=== PATIENT | male | born 1955 | race Caucasian/White ===

== ENCOUNTER 2023-01-15 05:40 | Outpatient (CLI) | payer MEDICARE ==
[~2023-01-15] VITALS: Ht 182.9 cm; Wt 102.1 kg
[~2023-01-15 05:40] MED LIST: LATA2.5D5 OP; [UNRECOGNIZED DRUG - OTHER] OU
[2023-01-15] MEDS ORDERED: BENA-3 PO (14:42)
[2023-01-15] MEDS ORDERED: ALFU10TA12 PO (14:42)
[2023-01-15] MEDS ORDERED: ATOR40TA70 PO (14:42)
[2023-01-15] MEDS ORDERED: LACTATED RINGERS 1,000 ML 1,000 ML IV STA (14:43)
== END 2023-01-15 14:46 ==
LOC: PREOP 05:40
PROVIDERS: ATTEND Internal Medicine
DX: Z01.818 Encounter for other preprocedural examination (principal)

== ENCOUNTER 2023-01-24 07:55 | Day surgery (SDC) | payer MEDICARE, OTHER ==
--- NOTE | 2023-01-14 09:00 | HISTORY AND PHYSICAL ---
COLONOSCOPY HISTORY AND PHYSICAL HISTORY OF PRESENT ILLNESS: The patient is a 67-year-old white male being set up for his first screening colonoscopy. He is not aware of any family history for colon cancer. Denies bright red blood per rectum, melena or change in bowel habit. He does report over the last year, he has had progressive diminishment in urinary stream with dribbling and he is now getting up 3 times at night to go to the bathroom. Interestingly, his PSA has been low. He has had no history of instrumentation or radiation therapy. He has noted no hematuria or dysuria. He will occasionally have lightheadedness when he gets up and his blood pressure was a little low at 100/60 when he first walked in. He has been feeling well otherwise, normal appetite and stable weight. PHYSICAL EXAMINATION: GENERAL: Reveals a white male, appears to be in no acute distress, 6 feet 1-3/4. VITAL SIGNS: Weight 225.8 pounds, blood pressure 100/60. CHEST: Clear. CARDIOVASCULAR: Reveals regular rate and rhythm without murmur, S3, or S4. ABDOMEN: Soft, supple without mass, organomegaly, or tenderness. EXTREMITIES: No cyanosis, clubbing or edema. ASSESSMENT AND PLAN: 1. The patient is being set up for screening colonoscopy. Prep instructions were given and questions were answered. 2. Symptoms compatible with prostatism. We will initiate alfuzosin 10 mg at the evening meal. Expectations were discussed as well as potential side effects. 3. Hypertension with stage III chronic renal disease. GFR was stable with blood test for review at 49 with a creatinine of 1.5, CO2 22, with a chloride of 109 and a sodium of 140 compatible with stage III chronic renal disease as his blood pressure is a little bit low. We will discontinue the hydrochlorothiazide. Continue 20 mg of benazepril daily. I will see him back in 2 months for repeat renal function and he will require a flu shot and blood pressure check. Job ID: [id number] DocumentID: [id number] Dictated Date: 01/13/2023 11:19:42 Credit Risk Modeler Date: 01/13/2023 11:54:00 Dictated By: JILL OLIVER MD
[~2023-01-24] VITALS: Ht 183 cm; Wt 102.1 kg
[~2023-01-24 07:55] MED LIST changes: +ALFU10TA12 PO; +ATOR40TA70 PO; +BENA-3 PO
[2023-01-24] MEDS ORDERED: LACTATED RINGERS 1,000 ML 1,000 ML IV STA (08:09)
[2023-01-24 08:15] VITALS: BP 130/76
--- NOTE | 2023-01-24 08:36 | Pre-Op Note & Conscious Sedat ---
Pre-Operative Progress Note Date H&P Reviewed: Jan 24, 2023 Time H&P Reviewed: 08:35 History & Physical: H&P Reviewed, Patient Examed, No changes noted Pre-Op Diagnosis: screening Moderate Sedation PreProcedure ASA Score 2 Airway Lungs Heart ASA score ASA 1: a normal healthy patient ASA 2: a patient with a mild systemic disease (mid diabetes, controlled hypertension, obesity ASA 3: a patient with a severe systemic disease that limits activity (angina, COPD, prior Myocardial infarction) ASA 4: a patient with an incapacitating disease that is a constant threat to life (CHF, renal failure) ASA 5: a moribund patient not expected to survive 24 hrs. (ruptured aneurysm) ASA 6: a declared brain- patient whose organs are being harvested. For emergent operations, add the letter E after the classification Mallampati Classification Grade 1 Sedation Plan Analgesia, Amnesia, Plan communicated to team members, Discussed options with patient/fam, Discussed risks with patient/fam The patient is an appropriate candidate to undergo the planned procedure, sedation, and anesthesia. The patient immediately re-assessed prior to indication. JILL OLIVER MD Jan 24, 2023 08:36
--- NOTE | 2023-01-24 09:27 | Anesthesia-General Post-Op ---
MAC Patient Condition Mental Status/LOC: Same as Preop Cardiovascular: Satisfactory Nausea/Vomiting: Absent Respiratory: Satisfactory Pain: Controlled Complications: Absent Post Op Complications Complications None Follow Up Care/Instructions Patient Instructions None needed. Anesthesiology Discharge Order Discharge Order Patient is doing well, no complaints, stable vital signs, no apparent adverse anesthesia problems. No complications reported per nursing. JOAN KUMAR CRNA Jan 24, 2023 09:27
[2023-01-24 09:30] VITALS: BP 90/59
--- NOTE | 2023-01-24 09:31 | Progress Note-Post Operative ---
Post-Procedure Note Physician (s)/Shipping Clerk (s) Physician JILL OLIVER MD Pre-Procedure Diagnosis Pre-Procedure Diagnosis: screening Post-Procedure Diagnosis Post-operative diagnosis: Prior to undergoing colonoscopy digital rectal evaluation was performed. Anal sphincter tone was normal and the perianal reflexes intact. The prostate is mildly enlarged and a nodular on digital inspection. No other abnormalities were noted on digital inspection anal canal or distal rectal vault. The colonoscope was then inserted into the rectum and under direct visualization advanced to the cecum. The cecum was identified by identification of the appendiceal orifice and ileocecal valve. Photographic documentation was obtained. A careful inspection was made as the colonoscope was withdrawn. Quality the prep was good. FindingsIn total 7 polyps were removed all under 5 mm in size and unremarkable in appearance. Locations include the distal rectum and distal sigmoid proximal descending splenic flexure 2 in the distal transverse colon and one in the mid transverse colon. Patient did have mild to moderate diverticular disease without evidence of diverticulitis confined to the sigmoid colon predominantly mid and proximal. No other abnormalities are noted. A/P 1. Multiple diminutive polyps were removed as per above total of 7 with no significant blood loss. As long as there are no surprises on histopathology report it is debatable as to whether or not I will be recommending future surveillance colonoscopy considering age. There will be an addendum recommendation in this regard after histopathology report is available. 2. Mild to moderate diverticular disease confined to the sigmoid colon was present without evidence of diverticulitis. The prostate is mildly enlarged and nodular on digital inspection. Patient was advised to abstain from aspirin nonsteroidal medication for at least the next week. JILL OLIVER MD Jan 24, 2023 09:31
[2023-01-24 09:35] VITALS: BP 107/64
[2023-01-24 09:40] VITALS: BP 107/64
[2023-01-24 10:11] VITALS: BP 107/64
--- NOTE | 2023-01-24 14:11 | Anesthesia-General Post-Op ---
MAC Patient Condition Mental Status/LOC: Same as Preop Cardiovascular: Satisfactory Nausea/Vomiting: Absent Respiratory: Satisfactory Pain: Controlled Complications: Absent Post Op Complications Complications None Follow Up Care/Instructions Patient Instructions None needed. Anesthesiology Discharge Order Discharge Order Patient is doing well, no complaints, stable vital signs, no apparent adverse anesthesia problems. No complications reported per nursing. ARMAND ARIAS CRNA Jan 24, 2023 14:11
== END 2023-01-24 10:26 | disposition home or self-care (01) ==
LOC: ENDO 07:55
PROVIDERS: ATTEND Internal Medicine
DX: Z12.11 Encounter for screening for malignant neoplasm of colon (principal); D12.3 Benign neoplasm of transverse colon; K63.5 Polyp of colon; K62.1 Rectal polyp; K57.30 Diverticulosis of large intestine without perforation or abscess without bleeding; I12.9 Hypertensive chronic kidney disease with stage 1 through stage 4 chronic kidney disease, or unspecified chronic kidney disease; N18.30 Chronic kidney disease, stage 3 unspecified; Z87.891 Personal history of nicotine dependence; Z79.899 Other long term (current) drug therapy
CPT/HCPCS: 88305